=== PATIENT | male | born 1940 | race Caucasian/White ===

== ENCOUNTER 2017-11-10 07:10 | Emergency (ER) | payer MEDICARE, BC ==
--- NOTE | 2017-11-10 07:17 | EDM.PDOC ---
ED HPI GENERAL MEDICAL PROBLEM - General Stated Complaint: CHEST PAIN Time Seen by Provider: 11/10/17 07:10 Source of Information: Reports: Patient, EMS, Family History Limitations: Reports: No Limitations - History of Present Illness INITIAL COMMENTS - FREE TEXT/NARRATIVE: 77.y.o.w.m with H/O CAD, MM, S/P CABG and stentplacements in the past, came to the ed by EMS due to acute R and L lower abd. pain, cramping this am. As per , pt was pale and diaphoretic. As the patient arrived here in the ED, he was in his usual state af helth. Pain has subsided. BP 127/75 pulse 80, temp 98 , O2 sat 95% on RA Onset Date: 11/10/17 Onset Time: 05:00 Duration: Resolved Prior to Arrival (lasting seconds only) Location: Reports: Abdomen Quality: Reports: Dull, Throbbing Severity: Severe Improves with: Reports: Other (spontaneously) Worsens with: Reports: None Context: Reports: Other (H/O CAD, MM) Associated Symptoms: Reports: No Other Symptoms - Related Data Allergies Allergy/AdvReac Type Severity Reaction Status Date / Time furosemide [From Lasix] Allergy Other Verified 11/10/17 07:52 naproxen sodium [From Aleve] Allergy Hallucinati Verified 11/10/17 07:52 ons Home Meds: Home Meds Acetaminophen 500 mg PO Q4HR PRN 09/23/15 [History] Allopurinol [Allopurinol] 200 mg PO DAILY 09/23/15 [History] Carvedilol [Coreg] 6.25 mg PO MOWEFR@09/23/15 [History] Cholecalciferol (Vitamin D3) [Vitamin D3] 2,000 unit PO DAILY 09/23/15 [History] Cyanocobalamin (Vitamin B-12) [Cyanocobalamin Injection] 1,000 mcg IM Q30D 09/23 [History] Sennosides/Docusate Sodium [Senna-Docusate Sodium] 1 tab PO BID 09/23/15 [ History] Torsemide [Demadex] 10 mg PO MOWEFR@09/23/15 [History] Aspirin [Aspirin] 81 mg PO DAILY 11/10/17 [History] Clopidogrel Bisulfate [Clopidogrel] 75 mg PO DAILY 11/10/17 [History] Dexamethasone 12 mg PO ASDIRECTED 11/10/17 [History] Ixazomib Citrate [Ninlaro] 3 mg PO ASDIRECTED 11/10/17 [History] Rosuvastatin [Crestor] 10 mg PO DAILY 11/10/17 [History] Past Medical History - Past Health History Medical/Surgical History: Denies Medical/Surgical History Cardiovascular History: Reports: Bypass, CAD Other Oncologic History: renal cancer with mets Social & Family History - Family History GI: Reports: None - Tobacco Use Smoking Status *Q: Never Smoker Second Hand Smoke Exposure: No - Recreational Drug Use Recreational Drug Use: No ED ROS GENERAL - Review of Systems Review Of Systems: See Below Constitutional: Reports: No Symptoms HEENT: Reports: No Symptoms Respiratory: Reports: No Symptoms Cardiovascular: Reports: No Symptoms Endocrine: Reports: No Symptoms GI/Abdominal: Reports: No Symptoms : Reports: No Symptoms Musculoskeletal: Reports: No Symptoms Skin: Reports: Other (rash ant C/W chronic) Neurological: Reports: No Symptoms Psychiatric: Reports: No Symptoms Hematologic/Lymphatic: Reports: No Symptoms Immunologic: Reports: No Symptoms ED EXAM, GENERAL - Physical Exam Exam: See Below Exam Limited By: No Limitations General Appearance: Alert, WD/WN, No Apparent Distress Eye Exam: Bilateral Eye: Normal Inspection Ears: Normal External Exam, Normal Canal Ear Exam: Bilateral Ear: Auricle Normal Nose: Normal Inspection, Normal Mucosa, No Blood Throat/Mouth: Normal Inspection, Normal Lips Head: Atraumatic, Normocephalic Neck: Normal Inspection, Supple, Non-Tender, Full Range of Motion Respiratory/Chest: No Respiratory Distress, Lungs Clear, Normal Breath Sounds Cardiovascular: Normal Peripheral Pulses, Regular Rate, Rhythm, No Edema, No Gallop, No Murmur, No Rub Peripheral Pulses: 1+: Radial (R) GI/Abdominal: Normal Bowel Sounds, Soft, Non-Tender, No Organomegaly, No Distention, No Abnormal Bruit, No Mass, Pelvis Stable (Male) Exam: No Hernia, Normal Inspection Rectal (Males) Exam: Deferred Back Exam: Normal Inspection, Full Range of Motion Extremities: Normal Inspection, Normal Range of Motion, Non-Tender, No Pedal Edema, Normal Capillary Refill Neurological: Alert, Oriented, CN II-XII Intact, Normal Cognition, No Motor/ Sensory Deficits Psychiatric: Normal Affect, Normal Mood Skin Exam: Rash (ant c/w) Lymphatic: No Adenopathy EKG INTERPRETATION EKG Date: 11/10/17 Time: 07:15 Rhythm: NSR Rate (Beats/Min): 82 [place]: Normal P-Wave: Present QRS: Normal ST-T: Normal QT: Normal Comparison: NA - No Prior EKG Course - Vital Signs Text/Narrative:: 77.y.o.w.m with H/O CAD, MM, S/P CABG and stentplacements in the past, came to the ed by EMS due to acute R and L lower abd. pain, cramping this am. As per , pt was pale and diaphoretic. As the patient arrived here in the ED, he was in his usual state af helth. Pain has subsided. BP 127/75 pulse 80, temp 98 , O2 sat 95% on RA Pt is on Plavix. did not mio his med this am PE: WNWD WM in NAD Imaging: Not indicated Labs: WBC 6.3 HGB 14.3 HKT 40.3 Na 137 K. 3.8 GFR 23 Cr. 2.2 BUN 37 Glc 120 Troponin was 0.195 Impression: H/O CAD, Renal insufficiency (GFR 23) Elevated troponin, H/O MM Tx: ASA Reexam: Pt is pain free since [employer], in his usual state of health 7.58 am Consultation: Dr Lucas Rf Engineer, [place]: admit to the hospitalistzane stress test 7.59 am Cansultation: Dr. Hsu, Hospitalist, [place]: Accepted the pt for admission Plan: Transfer to [place], pt agreed with plan Last Recorded V/S: Last Vital Signs Temp 36.7 C 11/10/17 12:15 Pulse 79 11/10/17 12:15 Resp 18 11/10/17 12:15 BP 112/78 11/10/17 12:15 Pulse Ox 93 L 11/10/17 12:15 - Orders/Labs/Meds Labs: Laboratory Tests 11/10/17 11/10/17 11/10/17 Range/Units 07:25 07:25 07:25 WBC 6.2 (4.5-12.0) X10-3/uL RBC 4.12 L (4.30-5.75) x10(6)uL Hgb 14.3 D (11.5-15.5) g/dL Hct 42.6 (30.0-51.3) % MCV 103.4 H (80-96) fL MCH 34.6 H (27.7-33.6) pg MCHC 33.5 (32.2-35.4) g/dL RDW 14.9 (11.5-15.5) % Plt Count 107 L (125-369) X10(3)uL MPV 10.9 H (7.4-10.4) fL Neut % (Auto) 71.7 (46-82) % Lymph % (Auto) 13.6 (13-37) % [place] % (Auto) 11.0 (4-12) % Eos % (Auto) 3 (1.0-5.0) % Baso % (Auto) 1 (0-2) % Neut # (Auto) 4.4 (1.6-8.3) # Lymph # (Auto) 0.8 (0.6-5.0) # Rincon # (Auto) 0.7 (0.0-1.3) # Eos # (Auto) 0.2 (0.0-0.8) # Baso # (Auto) 0.1 (0.0-0.2) # PT 11.1 (8.7-11.1) INR 1.10 (0.89-1.13) Sodium 142 (135-145) mmol/L Potassium 3.7 (3.5-5.3) mmol/L Chloride 107 (100-110) mmol/L Carbon Dioxide 27 (21-32) mmol/L BUN 37 H (7-18) mg/dL Creatinine 2.2 H* (0.70-1.30) mg/dL Est Cr Clr Drug Dosing 30.89 mL/min Estimated GFR (MDRD) 29 L (>60) BUN/Creatinine Ratio 16.8 (9-20) Glucose 120 H (80-116) mg/dL Calcium 8.6 (8.6-10.2) mg/dL Total Bilirubin 0.8 (0.1-1.3) mg/dL Direct Bilirubin 0.18 (0.10-0.20) mg/dL AST 23 (5-25) IU/L ALT 25 (12-36) U/L Alkaline Phosphatase 103 (56-112) IU/L Troponin I (<0.017-0.056) ng/mL Total Protein 6.1 (6.0-8.0) g/dL Albumin 3.3 (3.2-4.6) g/dL Amylase 119 H (25-115) U/L Urine Color (YELLOW) Urine Appearance (CLEAR) Urine pH (5.0-6.5) Ur Specific Colony (1.010-1.025) Urine Protein (NEGATIVE) mg/dL Urine Glucose (UA) (NEGATIVE) mg/dL Urine Ketones (NEGATIVE) mg/dL Urine Occult Blood (NEGATIVE) Urine Nitrite (NEGATIVE) Urine Bilirubin (NEGATIVE) Urine Urobilinogen (NEGATIVE) mg/dL Ur Leukocyte Esterase (NEGATIVE) Urine WBC (0) Ur Squamous Epith Cells (NS,R,O) Urine Bacteria (NS) 11/10/17 11/10/17 Range/Units 07:25 11:25 WBC (4.5-12.0) X10-3/uL RBC (4.30-5.75) x10(6)uL Hgb (11.5-15.5) g/dL Hct (30.0-51.3) % MCV (80-96) fL MCH (27.7-33.6) pg MCHC (32.2-35.4) g/dL RDW (11.5-15.5) % Plt Count (125-369) X10(3)uL MPV (7.4-10.4) fL Neut % (Auto) (46-82) % Lymph % (Auto) (13-37) % [place] % (Auto) (4-12) % Eos % (Auto) (1.0-5.0) % Baso % (Auto) (0-2) % Neut # (Auto) (1.6-8.3) # Lymph # (Auto) (0.6-5.0) # Rincon # (Auto) (0.0-1.3) # Eos # (Auto) (0.0-0.8) # Baso # (Auto) (0.0-0.2) # PT (8.7-11.1) INR (0.89-1.13) Sodium (135-145) mmol/L Potassium (3.5-5.3) mmol/L Chloride (100-110) mmol/L Carbon Dioxide (21-32) mmol/L BUN (7-18) mg/dL Creatinine (0.70-1.30) mg/dL Est Cr Clr Drug Dosing mL/min Estimated GFR (MDRD) (>60) BUN/Creatinine Ratio (9-20) Glucose (80-116) mg/dL Calcium (8.6-10.2) mg/dL Total Bilirubin (0.1-1.3) mg/dL Direct Bilirubin (0.10-0.20) mg/dL AST (5-25) IU/L ALT (12-36) U/L Alkaline Phosphatase (56-112) IU/L Troponin I 0.195 H* (<0.017-0.056) ng/mL Total Protein (6.0-8.0) g/dL Albumin (3.2-4.6) g/dL Amylase (25-115) U/L Urine Color Yellow (YELLOW) Urine Appearance Slightly cloudy (CLEAR) Urine pH 5.0 (5.0-6.5) Ur Specific Colony 1.015 (1.010-1.025) Urine Protein Negative (NEGATIVE) mg/dL Urine Glucose (UA) Normal (NEGATIVE) mg/dL Urine Ketones Negative (NEGATIVE) mg/dL Urine Occult Blood Negative (NEGATIVE) Urine Nitrite Negative (NEGATIVE) Urine Bilirubin Negative (NEGATIVE) Urine Urobilinogen Normal (NEGATIVE) mg/dL Ur Leukocyte Esterase Negative (NEGATIVE) Urine WBC 0-5 (0) Ur Squamous Epith Cells Few H (NS,R,O) Urine Bacteria Few H (NS) Meds: Medications Discontinued Medications Generic Name Dose Route Start Last Admin Trade Name Freq PRN Reason Stop Dose Admin Al Hydroxide/Mg Hydroxide 30 ml 11/10/17 09:39 11/10/17 09:55 Mag-Al Susp PO 11/10/17 09:40 30 ml ONETIME STA Administration Aspirin 324 mg 11/10/17 07:55 11/10/17 08:00 Aspirin PO 11/10/17 07:56 324 mg ONETIME ONE Administration Ondansetron HCl 8 mg 11/10/17 09:39 11/10/17 09:54 Zofran IVPUSH 11/10/17 09:40 8 mg ONETIME ONE Administration Sodium Chloride 10 ml 11/10/17 09:04 11/10/17 10:01 Saline Flush FLUSH 10 ml ASDIRECTED PRN Administration Keep Vein Open Departure - Departure Time of Disposition: 18:00 Disposition: DC/Tfer to Acute Hospital 02 Reason for Transfer *Q: Other (no technical support 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
[2017-11-10] MEDS: Aspirin 81 MG Tab.Chew PO ONE (08:00)
[2017-11-10] MEDS: Ondansetron 4 MG/2 ML SDV IVPUSH ONE (09:54)
[2017-11-10] MEDS: Aluminum Hydroxide/Magnesium Hydroxide Susp 30 ML Cup PO STA (09:55)
[2017-11-10] MEDS: Sodium Chloride 0.9% 10 ML Syringe FLUSH PRN (10:01)
[2017-11-10 16:42] VITALS: BP 112/78
== END 2017-11-10 12:45 ==
LOC: FB.ED 07:10
DX: I25.10 Atherosclerotic heart disease of native coronary artery without angina pectoris (principal); N28.9 Disorder of kidney and ureter, unspecified; R79.89 Other specified abnormal findings of blood chemistry; Z95.1 Presence of aortocoronary bypass graft; Z79.82 Long term (current) use of aspirin; Z79.899 Other long term (current) drug therapy; Z88.8 Allergy status to other drugs, medicaments and biological substances
CPT/HCPCS: 36415; 80048; 80076; 81001; 82150; 84484; 85025; 85610; 93005; 96374; 99285; A9270; J2405; J7050; 93010

== ENCOUNTER 2019-03-09 11:15 | Emergency (ER) | payer MEDICARE, BC ==
--- NOTE | 2019-03-09 11:51 | EDM.PDOC ---
ED HPI GENERAL MEDICAL PROBLEM - General Stated Complaint: WEAKNESS Time Seen by Provider: 03/09/19 11:15 Source of Information: Reports: Patient, EMS, Family History Limitations: Reports: Physical Impairment - History of Present Illness INITIAL COMMENTS - FREE TEXT/NARRATIVE: 78 y.o.w.m with a H/O metastatic prostate CA, MM, Bladder CA CAD S/P CABG, came by EMS after he fell in the bathroom because of generalized weakness. Pt denies any pain. His last radiation Thx was given yesterday. No chills. No SOB, No CP no N/V/D. Pt is a poor historian, HPI was given by his who arrived later. Pt is Ox3, No focal weakness, no head trauma. Pt had 2 weeks a go a facial droop which was checked in [place], no CVA/TIA was Dx'd. Pt noticed a minor bruise at his left knee and right ankle. BP 110/57 Pulse 95 Pulse ox 95% on RA RR 25 Temp 39.2, no chills. 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) - Related Data Allergies Allergy/AdvReac Type Severity Reaction Status Date / Time furosemide [From Lasix] Allergy Other Verified 03/09/19 11:34 naproxen sodium [From Aleve] Allergy Hallucinati Verified 03/09/19 11:34 ons ticagrelor [From Brilinta] Allergy Shortness Verified 03/09/19 11:34 of Breath Home Meds: Home Meds Allopurinol 200 mg PO DAILY 09/23/15 [History] Carvedilol [Coreg] 12.5 mg PO BID 09/23/15 [History] Sennosides/Docusate Sodium [Senna-Docusate Sodium] 1 tab PO BID 09/23/15 [ History] Aspirin 81 mg PO DAILY 11/10/17 [History] Ixazomib Citrate [Ninlaro] 3 mg PO ASDIRECTED 11/10/17 [History] Rosuvastatin [Crestor] 20 mg PO DAILY 11/10/17 [History] Tamsulosin HCl [Flomax] 0.8 mg PO DAILY 07/29/18 [History] Acetaminophen 650 mg PO Q6H PRN 03/09/19 [History] Albuterol/Ipratropium [DuoNeb 3.0-0.5 MG/3 ML] 3 ml .XX TID 03/09/19 [History] Bicalutamide [Casodex] 50 mg PO DAILY 03/09/19 [History] Calcium Carbonate [Calcium] 500 mg PO TID 03/09/19 [History] Cholecalciferol (Vitamin D3) [Vitamin D3] 2,000 unit PO DAILY 03/09/19 [History] Eltrombopag Olamine [Promacta] 75 mg PO DAILY 03/09/19 [History] Iron Polysaccharides Complex [Ferrex 150] 150 mg PO ASDIRECTED 03/09/19 [History ] Isosorbide Mononitrate [Imdur] 90 mg PO DAILY 03/09/19 [History] LORazepam [Ativan] 0.5 mg PO ASDIRECTED 03/09/19 [History] Lactobacillus Acidophilus [Acidophilus] 1 each PO ASDIRECTED 03/09/19 [History] Nitroglycerin 0.4 mg SL ASDIRECTED 03/09/19 [History] Ondansetron [Zofran] 8 mg PO ASDIRECTED 03/09/19 [History] Pantoprazole [ProTONIX] 40 mg PO DAILY 03/09/19 [History] Potassium Chloride [Klor-Con] 20 meq PO DAILY 03/09/19 [History] Psyllium with Sucrose [Metamucil] 1 each PO BID 03/09/19 [History] Sodium Bicarbonate 650 mg PO TID 03/09/19 [History] Torsemide 10 mg PO ASDIRECTED 03/09/19 [History] guaiFENesin/Codeine Phosphate [Codeine-Guaifen 10-100 mg/5 ml] 10 ml PO Q4H PRN 03/09/19 [History] predniSONE [Prednisone] 40 mg PO DAILY 03/09/19 [History] traMADol [Ultram] 50 mg PO Q4H PRN 03/09/19 [History] Past Medical History - Past Health History Medical/Surgical History: Denies Medical/Surgical History HEENT History: Reports: Cataract Cardiovascular History: Reports: Bypass, CAD Other Cardiovascular History: defibulator Respiratory History: Reports: Sleep Apnea Genitourinary History: Reports: Other (See Below) Other Genitourinary History: Stage 4 renal disease Endocrine/Metabolic History: Reports: Obesity/BMI 30+ Hematologic History: Reports: B12 Deficiency, Other (See Below) Other Hematologic History: monthly shot Oncologic (Cancer) History: Reports: Other (See Below) Other Oncologic History: renal cancer with mets Dermatologic History: Reports: Other (See Below) Other Dermatologic History: erruptions due to chemo - Past Surgical History HEENT Surgical History: Reports: Cataract Surgery Cardiovascular Surgical History: Reports: Coronary Artery Bypass, Coronary Artery Stent GI Surgical History: Reports: Appendectomy, Cholecystectomy Musculoskeletal Surgical History: Reports: Other (See Below) Other Musculoskeletal Surgeries/Procedures:: Back surgery Social & Family History - Family History Family Medical History: Noncontributory GI: Reports: None - Caffeine Use Caffeine Use: Reports: None ED ROS GENERAL - Review of Systems Review Of Systems: See Below Constitutional: Reports: Weakness HEENT: Reports: No Symptoms Respiratory: Reports: No Symptoms Cardiovascular: Reports: No Symptoms Endocrine: Reports: No Symptoms GI/Abdominal: Reports: No Symptoms : Reports: No Symptoms Musculoskeletal: Reports: No Symptoms Skin: Reports: Pallor Neurological: Reports: No Symptoms Psychiatric: Reports: No Symptoms Hematologic/Lymphatic: Reports: Anemia Immunologic: Reports: No Symptoms ED EXAM, GENERAL - Physical Exam Exam: See Below Exam Limited By: Physical Impairment General Appearance: Alert, Mild Distress, Obese Eye Exam: Bilateral Eye: Normal Inspection Ears: Normal External Exam Ear Exam: Bilateral Ear: Auricle Normal Nose: Normal Inspection, Normal Mucosa, No Blood Throat/Mouth: Normal Lips, Normal Voice, No Airway Compromise, Other (poor dentition) Head: Atraumatic, Normocephalic Neck: Normal Inspection, Supple, Non-Tender, Full Range of Motion Respiratory/Chest: No Respiratory Distress, Lungs Clear, Normal Breath Sounds, No Accessory Muscle Use, Chest Non-Tender Cardiovascular: Normal Peripheral Pulses, Regular Rate, Rhythm, No Gallop, Systolic Murmur (2/5, not new), Other (chronic pitting edema lower extremities) Peripheral Pulses: 1+: Radial (L) GI/Abdominal: Normal Bowel Sounds (Male) Exam: No Hernia Rectal (Males) Exam: Normal Exam Back Exam: Normal Inspection Extremities: Normal Range of Motion, Pedal Edema Neurological: Alert, Oriented, CN II-XII Intact, Normal Cognition, Abnormal Gait (too weak to ambulate.) Psychiatric: Normal Affect, Normal Mood Skin Exam: Warm, Dry, Ecchymosis (upper ) Lymphatic: Adenopathy EKG INTERPRETATION EKG Date: 03/09/19 Time: 11:35 Rhythm: NSR Rate (Beats/Min): 93 [place]: LAD-Left [place] Deviation P-Wave: Present QRS: Normal ST-T: Normal QT: Normal Comparison: No Change (from 07/29/2018) Course - Vital Signs Text/Narrative:: 78 y.o.w.m with a H/O metastatic prostate CA, MM, Bladder CA CAD S/P CABG, came by EMS after he fell in the bathroom because of generalized weakness. Pt denies any pain. His last radiation Thx was given yesterday. No chills. No SOB, No CP no N/V/D. Pt is a poor historian, HPI was given by his who arrived later. Pt is Ox3, No focal weakness, no head trauma. Pt had 2 weeks a go a facial droop which was checked in [place], no CVA/TIA was Dx'd. Pt noticed a minor bruise at his left knee and right ankle. BP 110/57 Pulse 95 Pulse ox 95% on RA RR 25 Temp 39.2, no chills. PE: Pale, gen weak appearing 78 y.o.w.m with multiple medical issues. Imaging: CXR: possible atelectasis right lung, official report is pending. CT Head: NAD Labs: WBC 4.1 HGB 10.4 Plts 9K MCV 103.1 INR 1.3 Na 140 K 5.0 Bun 29 CR 2.1 GFR 31 Lactic acid 1.8 Ca 7.7 Elevated liver enzymes, Troponin 0.137 CK 456 Alb 2.4 BCx results are pending ECG: NSR no change from 07/29/2018 Impression: MM, Prostate and bladder CA. Thrombocytopenia. Anemia, CAD H/O CABG. elevated Troponin, elevated liver enzymes, Hypocalcemia, Atelectasis right lower lung. Sepsis risk. Thx: NS bolus 500 cc, then 125, Motrin for Temp (had Motrin in the past), Zosyn. O2 by [place] 12.30 pm: Consultation: Dr. Zuleta, Hospitalist: Transfer to [facility] 12.36 pm Consultation: , Oncologist,[facility]: Call Hospitalist 1.29pm: Dr. Mcmillan, Hospitalist at [facility] called back: Accepted the patient for transfer and further care, recommended a CT head before Transfer. Re exam: Pt was doing fine in the ED. After pt fell asleep, his BP dropped to 89 /47. it came up to 92/50 after pt woke up. NS and Abx were started pt's vitals improved further. Plan: Transfer by EMS to [place]. Please check the nursing for vitals on transfer. Last Recorded V/S: Last Vital Signs Temp 36.8 C 03/09/19 15:00 Pulse 83 03/09/19 15:00 Resp 24 H 03/09/19 15:00 BP 103/58 L 03/09/19 15:00 Pulse Ox 100 03/09/19 15:00 - Orders/Labs/Meds Labs: Laboratory Tests 03/09/19 03/09/19 03/09/19 Range/Units 11:45 11:45 11:45 WBC 4.2 L (4.5-12.0) X10-3/uL RBC 3.14 L (4.30-5.75) x10(6)uL Hgb 10.9 L (13.5-17.8) g/dL Hct 32.4 (30.0-51.3) % MCV 103.1 H (80-96) fL MCH 34.7 H (27.7-33.6) pg MCHC 33.6 (32.2-35.4) g/dL RDW 22.6 H (11.5-15.5) % Plt Count 9 L* (125-369) X10(3)uL MPV 7.9 (7.4-10.4) fL Neut % (Auto) 78.0 (46-82) % Lymph % (Auto) 13.6 (13-37) % [place] % (Auto) 7.4 (4-12) % Eos % (Auto) 0 L (1.0-5.0) % Baso % (Auto) 1 (0-2) % Neut # (Auto) 3.3 (1.6-8.3) # Lymph # (Auto) 0.6 (0.6-5.0) # [place] # (Auto) 0.3 (0.0-1.3) # Eos # (Auto) 0.0 (0.0-0.8) # Baso # (Auto) 0.0 (0.0-0.2) # PT 12.6 H (8.7-11.1) INR 1.30 H (0.89-1.13) Sodium 140 (135-145) mmol/L Potassium 5.0 D (3.5-5.3) mmol/L Chloride 105 (100-110) mmol/L Carbon Dioxide 25 (21-32) mmol/L BUN 29 H D (7-18) mg/dL Creatinine 2.1 H* (0.70-1.30) mg/dL Est Cr Clr Drug Dosing 31.38 mL/min Estimated GFR (MDRD) 31 L (>60) BUN/Creatinine Ratio 13.8 (9-20) Glucose 115 (80-116) mg/dL Lactic Acid (0.4-2.2) mmol/L Calcium 7.7 L (8.6-10.2) mg/dL Magnesium (1.8-2.5) mg/dL Total Bilirubin 1.8 H (0.1-1.3) mg/dL Direct Bilirubin 0.90 H (0.10-0.20) mg/dL AST 51 H D (5-25) IU/L ALT 68 H D (12-36) U/L Alkaline Phosphatase 482 H (56-112) IU/L Creatine Kinase (60-160) IU/L Troponin I (<0.017-0.056) ng/mL NT-Pro-B Natriuret Pep (<=450) pg/mL Total Protein 6.1 (6.0-8.0) g/dL Albumin 2.4 L (3.2-4.6) g/dL Amylase 35 (25-115) U/L Vitamin B12 (193-986) pg/mL Urine Color (YELLOW) Urine Appearance (CLEAR) Urine pH (5.0-6.5) Ur Specific [place] (1.010-1.025) Urine Protein (NEGATIVE) mg/dL Urine Glucose (UA) (NORMAL) mg/dL Urine Ketones (NEGATIVE) mg/dL Urine Occult Blood (NEGATIVE) Urine Nitrite (NEGATIVE) Urine Bilirubin (NEGATIVE) Urine Urobilinogen (NEGATIVE) mg/dL Ur Leukocyte Esterase (NEGATIVE) Urine RBC (0-5) Urine WBC (0-5) Ur Squamous Epith Cells (NS,R,O) Urine Bacteria (NS) 03/09/19 03/09/19 03/09/19 Range/Units 11:45 11:45 11:45 WBC (4.5-12.0) X10-3/uL RBC (4.30-5.75) x10(6)uL Hgb (13.5-17.8) g/dL Hct (30.0-51.3) % MCV (80-96) fL MCH (27.7-33.6) pg MCHC (32.2-35.4) g/dL RDW (11.5-15.5) % Plt Count (125-369) X10(3)uL MPV (7.4-10.4) fL Neut % (Auto) (46-82) % Lymph % (Auto) (13-37) % [place] % (Auto) (4-12) % Eos % (Auto) (1.0-5.0) % Baso % (Auto) (0-2) % Neut # (Auto) (1.6-8.3) # Lymph # (Auto) (0.6-5.0) # [place] # (Auto) (0.0-1.3) # Eos # (Auto) (0.0-0.8) # Baso # (Auto) (0.0-0.2) # PT (8.7-11.1) INR (0.89-1.13) Sodium (135-145) mmol/L Potassium (3.5-5.3) mmol/L Chloride (100-110) mmol/L Carbon Dioxide (21-32) mmol/L BUN (7-18) mg/dL Creatinine (0.70-1.30) mg/dL Est Cr Clr Drug Dosing mL/min Estimated GFR (MDRD) (>60) BUN/Creatinine Ratio (9-20) Glucose (80-116) mg/dL Lactic Acid 1.8 (0.4-2.2) mmol/L Calcium (8.6-10.2) mg/dL Magnesium (1.8-2.5) mg/dL Total Bilirubin (0.1-1.3) mg/dL Direct Bilirubin (0.10-0.20) mg/dL AST (5-25) IU/L ALT (12-36) U/L Alkaline Phosphatase (56-112) IU/L Creatine Kinase 452 H* (60-160) IU/L Troponin I 0.137 H* (<0.017-0.056) ng/mL NT-Pro-B Natriuret Pep > 99803 H* (<=450) pg/mL Total Protein (6.0-8.0) g/dL Albumin (3.2-4.6) g/dL Amylase (25-115) U/L Vitamin B12 (193-986) pg/mL Urine Color (YELLOW) Urine Appearance (CLEAR) Urine pH (5.0-6.5) Ur Specific [place] (1.010-1.025) Urine Protein (NEGATIVE) mg/dL Urine Glucose (UA) (NORMAL) mg/dL Urine Ketones (NEGATIVE) mg/dL Urine Occult Blood (NEGATIVE) Urine Nitrite (NEGATIVE) Urine Bilirubin (NEGATIVE) Urine Urobilinogen (NEGATIVE) mg/dL Ur Leukocyte Esterase (NEGATIVE) Urine RBC (0-5) Urine WBC (0-5) Ur Squamous Epith Cells (NS,R,O) Urine Bacteria (NS) 03/09/19 03/09/19 03/09/19 Range/Units 11:45 11:45 12:10 WBC (4.5-12.0) X10-3/uL RBC (4.30-5.75) x10(6)uL Hgb (13.5-17.8) g/dL Hct (30.0-51.3) % MCV (80-96) fL MCH (27.7-33.6) pg MCHC (32.2-35.4) g/dL RDW (11.5-15.5) % Plt Count (125-369) X10(3)uL MPV (7.4-10.4) fL Neut % (Auto) (46-82) % Lymph % (Auto) (13-37) % [place] % (Auto) (4-12) % Eos % (Auto) (1.0-5.0) % Baso % (Auto) (0-2) % Neut # (Auto) (1.6-8.3) # Lymph # (Auto) (0.6-5.0) # [place] # (Auto) (0.0-1.3) # Eos # (Auto) (0.0-0.8) # Baso # (Auto) (0.0-0.2) # PT (8.7-11.1) INR (0.89-1.13) Sodium (135-145) mmol/L Potassium (3.5-5.3) mmol/L Chloride (100-110) mmol/L Carbon Dioxide (21-32) mmol/L BUN (7-18) mg/dL Creatinine (0.70-1.30) mg/dL Est Cr Clr Drug Dosing mL/min Estimated GFR (MDRD) (>60) BUN/Creatinine Ratio (9-20) Glucose (80-116) mg/dL Lactic Acid (0.4-2.2) mmol/L Calcium (8.6-10.2) mg/dL Magnesium 1.4 L (1.8-2.5) mg/dL Total Bilirubin (0.1-1.3) mg/dL Direct Bilirubin (0.10-0.20) mg/dL AST (5-25) IU/L ALT (12-36) U/L Alkaline Phosphatase (56-112) IU/L Creatine Kinase (60-160) IU/L Troponin I (<0.017-0.056) ng/mL NT-Pro-B Natriuret Pep (<=450) pg/mL Total Protein (6.0-8.0) g/dL Albumin (3.2-4.6) g/dL Amylase (25-115) U/L Vitamin B12 1461 H (193-986) pg/mL Urine Color Yellow (YELLOW) Urine Appearance Clear (CLEAR) Urine pH 8.0 H (5.0-6.5) Ur Specific [place] 1.015 (1.010-1.025) Urine Protein 100 H (NEGATIVE) mg/dL Urine Glucose (UA) 100 H (NORMAL) mg/dL Urine Ketones Negative (NEGATIVE) mg/dL Urine Occult Blood Large H (NEGATIVE) Urine Nitrite Negative (NEGATIVE) Urine Bilirubin Negative (NEGATIVE) Urine Urobilinogen Normal (NEGATIVE) mg/dL Ur Leukocyte Esterase Negative (NEGATIVE) Urine RBC 0-5 (0-5) Urine WBC 0-5 (0-5) Ur Squamous Epith Cells Occasional (NS,R,O) Urine Bacteria Few H (NS) Meds: Medications Discontinued Medications Generic Name Dose Route Start Last Admin Trade Name Freq PRN Reason Stop Dose Admin Sodium Chloride 1,000 mls @ 125 mls/hr 03/09/19 14:45 03/09/19 14:35 Normal Saline IV 999 mls/hr ASDIRECTED AUGUSTUS Administration Piperacillin Sod/Tazobactam 50 mls @ 100 mls/hr 03/09/19 14:35 03/09/19 14:49 Sod 3.375 gm/ Sodium Chloride IV 03/09/19 15:04 100 mls/hr ONETIME STA Administration Ibuprofen 600 mg 03/09/19 12:25 03/09/19 12:39 Motrin PO 03/09/19 12:26 600 mg ONETIME ONE Administration Pantoprazole Sodium 40 mg 03/09/19 12:25 03/09/19 12:41 Protonix Iv IVPUSH 03/09/19 12:26 40 mg ONETIME ONE Administration Sodium Chloride 10 ml 03/09/19 12:58 Normal Saline FLUSH UPON PRN MED FLUSH Sodium Chloride 10 ml 03/09/19 13:00 03/09/19 14:30 Saline Flush FLUSH 10 ml ASDIRECTED PRN Administration MED FLUSH Departure - Departure Time of Disposition: 18:00 Disposition: DC/Tfer to Acute Hospital 02 Condition: Fair Clinical Impression: Bladder cancer - Discharge Information Referrals: Neil Henderson MD [Primary Care Provider] - Forms: ED Department Discharge
[2019-03-09] MEDS ORDERED: Pantoprazole 40 MG Vial IVPUSH ONE (12:25)
[2019-03-09] MEDS ORDERED: Ibuprofen 600 MG Tab PO ONE (12:25)
[2019-03-09] MEDS: Sodium Chloride 0.9% 10 ML Syringe FLUSH PRN ×3 (12:39→14:30)
[2019-03-09] MEDS ORDERED: Sodium Chloride 0.9% 20 ML SDV FLUSH PRN (12:58)
[2019-03-09] MEDS ORDERED: Piperacillin/Tazobactam 3.375 GM in Sodium Chloride 0.9% 50 ML IV STA (14:35)
[2019-03-09] MEDS ORDERED: Sodium Chloride 0.9% 1,000 ML IV SCH (14:45)
[2019-03-09 15:53] VITALS: BP 103/58
== END 2019-03-09 15:20 ==
LOC: FB.ED 11:15
DX: C67.9 Malignant neoplasm of bladder, unspecified (principal); C61 Malignant neoplasm of prostate; D69.6 Thrombocytopenia, unspecified; D63.0 Anemia in neoplastic disease; I25.10 Atherosclerotic heart disease of native coronary artery without angina pectoris; R79.89 Other specified abnormal findings of blood chemistry; R74.8 Abnormal levels of other serum enzymes; E83.51 Hypocalcemia; J98.11 Atelectasis; Z95.1 Presence of aortocoronary bypass graft; Z88.8 Allergy status to other drugs, medicaments and biological substances; Z88.5 Allergy status to narcotic agent; Z79.899 Other long term (current) drug therapy; Z79.82 Long term (current) use of aspirin; N18.4 Chronic kidney disease, stage 4 (severe); E66.9 Obesity, unspecified; Z68.29 Body mass index [BMI] 29.0-29.9, adult
CPT/HCPCS: 36415; 51702; 70450; 71045; 80048; 80076; 81001; 82150; 82550; 82607; 83605; 83735; 83880; 84484; 85025; 85610; 87040; 93005; 96365; 96375; 99285; A9270; C9113; J2543; J7030; J7050

== ENCOUNTER 2019-03-20 10:48 | Inpatient (IN) | payer MEDICARE, BC ==
[2019-03-20] MEDS ORDERED: traMADol 50 MG Tab PO PRN (18:05)
[2019-03-20] MEDS ORDERED: LORazepam 0.5 MG Tab PO PRN (18:05)
[2019-03-20] MEDS ORDERED: DEXTRAN OP PRN (18:05)
[2019-03-20] MEDS ORDERED: Albuterol/Ipratropium 3.0-0.5 MG/3 ML Neb Soln INH PRN (18:05)
[2019-03-20] MEDS ORDERED: [UNRECOGNIZED DRUG - OTHER] OP PRN (18:05)
[2019-03-20] MEDS ORDERED: Morphine Oral Concentrate 20 MG/ML 30 ML Bottle PO PRN (18:05)
[2019-03-20] MEDS ORDERED: GLYCERIN OP PRN (18:05)
[2019-03-20] MEDS ORDERED: HYPROMELLOSE OP PRN (18:05)
[2019-03-20] MEDS ORDERED: Codeine/guaiFENesin 100-10 MG/5 ML Syrup 5 ML Cup PO PRN (18:23)
[2019-03-20] MEDS ORDERED: LORazepam 2 MG/ML SDV IVPUSH PRN (18:58)
[2019-03-20] MEDS ORDERED: Sodium Chloride 0.9% 10 ML Syringe FLUSH PRN (18:59)
[2019-03-20] MEDS ORDERED: Acetaminophen 650 MG Supp RECTAL PRN (22:08)
[2019-03-20] MEDS: Nystatin Susp 100,000 Unit/ML 60 ML Bottle PO SCH ×2 (22:36→22:48)
[2019-03-20] MEDS: Nystatin Susp 100,000 Unit/ML 5 ML UD Cup PO SCH (22:47)
[2019-03-21] MEDS ORDERED: Morphine 10 MG/0.5 ML Oral Syringe PO PRN ×2 (08:16→10:54)
[2019-03-21] MEDS: predniSONE 20 MG Tab PO SCH (10:12)
[2019-03-21] MEDS: Carboxymethylcellulose Sodium 0.5% Ophth Soln 15 ML Bottle EYEBOTH SCH ×4 (10:12→20:58)
[2019-03-21] MEDS: Nystatin Susp 100,000 Unit/ML 5 ML UD Cup PO SCH ×4 (10:12→20:50)
[2019-03-21] MEDS ORDERED: Haloperidol 0.5 MG Tab PO PRN (10:48)
[2019-03-21] MEDS ORDERED: Hyoscyamine 0.125 MG Tab.SL PO PRN (10:53)
--- NOTE | 2019-03-21 18:03 | HP ---
ADMISSION DATE: 03/20/2019 CHIEF COMPLAINT: Complicated declining health. HISTORY OF PRESENT ILLNESS: Chino Stone is a 78-year-old male; a resident of [place], [place] and [place], [place]. Has had a complicated health issue over the last several years' duration. 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 Presented to [facility] on 03/09/2019 with progressive falls; progressive weakness; increasing evidence of metastatic disease, hepatic in particular; worsening neurological symptoms with cachexia and weakness; reluctance to eat; and progressive decline. He was seen by specialty care, transferred to hospice intervention. Fevers prior to discharge, responded to Tylenol. MEDICATIONS: On board, please see med reconciliation list. ALLERGIES: Allergy to Atorvastatin. Intolerance: Aleve, unremarkable; Brilinta, shortness of breath; and furosemide. PAST MEDICAL HISTORY: Significant for the above described cancers including multiple myeloma, prostate cancer, squamous cell cancer of the bladder, and squamous cell cancer of the rectum with interval care. He has had prostate biopsies, lumbar thoracic spine fusion, bilateral cataract surgery, open cholecystectomy, coronary bypass surgery, kidney stone, and lithotripsy. SOCIAL HISTORY: Retired. 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 in good health. 1 adopted daughter, 2 grandchildren. Never smoked. Nil alcohol consumption or illicit drug use. FAMILY HISTORY: Unremarkable. REVIEW OF SYSTEMS: CONSTITUTIONAL: Weaker. EYES: Uncertain. EARS: Some difficulty hearing. OROPHARYNX: Speech has been more garbled and difficult. CHEST: Vague cough. CARDIOVASCULAR: No apparent chest pain. GASTROINTESTINAL: Stools have been reluctant, incontinent of stool and urine. SKIN: No open sores or lesions. ENDOCRINE: No excessive thirst or urination. ALLERGIC: No chronic cough. PSYCHIATRIC: Mood stable. PHYSICAL EXAMINATION: VITAL SIGNS: 36.3, 83, 114/71, 16, and 98%. GENERAL: Elderly gentleman, appears older than stated age. Conversation is limited. History mostly by . HEENT: Funduscopic benign. Bright TMs. Clear nasal discharge. Mouth and oropharynx reveal dry mucous membranes. There are no intraoral lesions. NECK: Benign. No adenopathy. CHEST: Clear in all lung alfaro. Decreased breath sounds throughout. Poor respiratory effort. HEART: Sounds are distant, occasional ectopy. ABDOMEN: Benign, distended, tympanitic. Liver edge appears to be enlarged. Surgical scar is well healed. GENITOURINARY: Unremarkable. RECTAL: Deferred. EXTREMITIES: Reveal moderate edema, decreased peripheral pulses. LABORATORY STUDIES: None indicated. ASSESSMENT: Complicated metastatic cancer. PLAN: Comfort measures, DNR, appropriate management and care, transition to hospice and/or other appropriate facilities, and pain control on board. /[id number] /EDWIN
--- NOTE | 2019-03-22 08:14 | PN ---
DATE SEEN: 03/21/2019 SUBJECTIVE: Chino Stone is a delightful 78-year-old gentleman admitted to [facility] for interval care. Metastatic cancer unresponsive to treatment, support measures in place. Had a pretty good night. 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 More alert today. Hospice will evaluate transition of care. PHYSICAL EXAMINATION: VITAL SIGNS: 37.5, 83, 95/62, 20, 95. GENERAL: A bit more bright. Speech was a little garbled, but receptible. NECK: Benign. CHEST: Clear. Distant lung sounds. HEART: Distant heart sounds. No ectopy. ABDOMEN: Distended. IMPRESSION: Metastatic disease. PLAN: Comfort measures, hospice to be involved, complementary care and well being. /[id number] NURA/EDWIN
[2019-03-22] MEDS: Nystatin Susp 100,000 Unit/ML 5 ML UD Cup PO SCH ×4 (08:51→20:59)
[2019-03-22] MEDS: predniSONE 20 MG Tab PO SCH (08:52)
[2019-03-22] MEDS: Carboxymethylcellulose Sodium 0.5% Ophth Soln 15 ML Bottle EYEBOTH SCH ×3 (09:00→20:58)
--- NOTE | 2019-03-22 13:59 | PN ---
DATE SEEN: 03/22/2019 SUBJECTIVE: Chino Stone is a 78-year-old male in Palliative Care. Had a pretty good night. Had an uncomfortable dream, but better this morning. More awake, more alert, more appropriate. Pain over his buttocks is the primary concern. Otherwise been doing well. Medications reviewed and appropriate. Hospice, home health consultation has been obtained. LABORATORY STUDIES: None indicated. OBJECTIVE: VITAL SIGNS: 35.9, 66, 122/82, 95, 18, 97. GENERAL: Bright, alert, awake. Speech was a bit garbled, but attentive. NECK: Benign. No JVD. CHEST: Clear in all lung alfaro. HEART: No ectopy or murmur. ABDOMEN: Benign. ASSESSMENT: Palliative care, progressive metastatic cancer. PLAN: Comfort measures in place, hospice on board, discharge plans pending clinical course. /[id number] NURA/EDWIN
[2019-03-23] MEDS: predniSONE 20 MG Tab PO SCH (09:28)
[2019-03-23] MEDS: Nystatin Susp 100,000 Unit/ML 5 ML UD Cup PO SCH ×4 (09:28→20:36)
[2019-03-23] MEDS: Carboxymethylcellulose Sodium 0.5% Ophth Soln 15 ML Bottle EYEBOTH SCH ×3 (09:29→20:36)
--- NOTE | 2019-03-23 13:53 | PN ---
DATE SEEN: 03/23/2019 SUBJECTIVE: Chino Stone is a delightful 78-year-old male, in respite care. Seemed to be rebounding. More awake, more alert, more attentive. Pain is not an issue. Little bit disoriented, but comfortable. MEDICATIONS: Reviewed and appropriate. LABORATORY STUDIES: None indicated. PHYSICAL EXAMINATION: VITAL SIGNS: 36.9, 95, 116/65, 18, and 97. GENERAL: Awake, alert, appropriate, responsive to his friends and family. CHEST: Clear in all lung alfaro. HEART: Distant heart sounds. Occasional ectopy. ABDOMEN: Rotund. ASSESSMENT: Metastatic disease. PLAN: Care plan in place, prolonged stay in a snf or home with care as appropriate. /[id number] NURA/EDWIN
[2019-03-24] MEDS: Nystatin Susp 100,000 Unit/ML 5 ML UD Cup PO SCH ×4 (08:23→20:17)
[2019-03-24] MEDS: Carboxymethylcellulose Sodium 0.5% Ophth Soln 15 ML Bottle EYEBOTH SCH ×3 (08:23→20:17)
[2019-03-24] MEDS: predniSONE 20 MG Tab PO SCH (08:24)
[2019-03-24] MEDS: LORazepam 0.5 MG Tab PO PRN (21:08)
[2019-03-24] MEDS: Acetaminophen 325 MG Tab PO PRN (21:09)
[2019-03-25] MEDS: predniSONE 20 MG Tab PO SCH (09:00)
[2019-03-25] MEDS: Carboxymethylcellulose Sodium 0.5% Ophth Soln 15 ML Bottle EYEBOTH SCH ×3 (09:00→20:13)
[2019-03-25] MEDS: Nystatin Susp 100,000 Unit/ML 5 ML UD Cup PO SCH ×4 (09:00→20:13)
[2019-03-26] MEDS: Carboxymethylcellulose Sodium 0.5% Ophth Soln 15 ML Bottle EYEBOTH SCH ×3 (09:33→20:26)
[2019-03-26] MEDS: predniSONE 20 MG Tab PO SCH (09:34)
[2019-03-26] MEDS: Nystatin Susp 100,000 Unit/ML 5 ML UD Cup PO SCH ×4 (09:34→20:26)
[2019-03-26] MEDS: LORazepam 0.5 MG Tab PO PRN (20:27)
[2019-03-26] MEDS: Acetaminophen 325 MG Tab PO PRN (20:27)
[2019-03-27] MEDS: Carboxymethylcellulose Sodium 0.5% Ophth Soln 15 ML Bottle EYEBOTH SCH ×3 (09:25→20:50)
[2019-03-27] MEDS: predniSONE 20 MG Tab PO SCH (09:25)
[2019-03-27] MEDS: Nystatin Susp 100,000 Unit/ML 5 ML UD Cup PO SCH ×4 (09:25→20:50)
--- NOTE | 2019-03-28 08:26 | PCM.PN ---
- General Info Date of Service: 03/28/19 Admission Dx/Problem (Free Text): patient states he is doing well. His appetite is coming back and he can move his arms and legs. Still not able to your weight without a lot of assistance. He denies chest pain, shortness of breath. - Patient Data Vitals - Most Recent: Last Vital Signs Temp 97.4 F 03/28/19 01:09 Pulse 84 03/28/19 01:09 Resp 14 03/28/19 01:09 BP 119/63 03/28/19 01:09 Pulse Ox 96 03/28/19 01:09 Weight - Most Recent: 190 lb 9.6 oz Med Orders - Current: Current Medications Acetaminophen (Tylenol) 650 mg RECTAL Q4H PRN PRN Reason: MILD PAIN/FEVER Last Admin: 03/20/19 22:36 Dose: 650 mg Acetaminophen (Tylenol) 650 mg PO Q4H PRN PRN Reason: MILD PAIN/FEVER Last Admin: 03/26/19 20:27 Dose: 650 mg Albuterol/Ipratropium (Duoneb 3.0-0.5 Mg/3 Ml) 3 ml INH TID PRN PRN Reason: Shortness of Breath Artificial Tears (Refresh Tears 0.5%) 0 ml EYEBOTH TID [facility] Last Admin: 03/27/19 20:50 Dose: 3 drop Guaifenesin/Codeine Phosphate (Robitussin Ac) 10 ml PO Q4H PRN PRN Reason: Cough Haloperidol (Haldol) 0.5 mg PO Q6H PRN PRN Reason: AGITATION/HALLUCINATIONS Hyoscyamine (Hyomax-Sl) 0.125 mg PO Q4H PRN PRN Reason: SECRETION MANAGEMENT Lorazepam (Ativan) 0.5 mg PO Q2H PRN PRN Reason: DYSPNEA/AGITATION Last Admin: 03/26/19 20:27 Dose: 0.5 mg Morphine Sulfate (Morphine 10 Mg/0.5 Ml Oral Syringe) 5 mg PO Q30M PRN PRN Reason: MODERATE-SEVERE PAIN/DYSPNEA Nystatin (Mycostatin) 5 ml PO QID [facility] Last Admin: 03/27/19 20:50 Dose: 5 ml Prednisone (Prednisone) 20 mg PO DAILY [facility] Last Admin: 03/27/19 09:25 Dose: 20 mg Senna/Docusate Sodium (Senna Plus) 1 tab PO BID PRN PRN Reason: Constipation Sodium Chloride (Saline Flush) 10 ml FLUSH ASDIRECTED PRN PRN Reason: Keep Vein Open Tramadol HCl (Ultram) 50 mg PO QID PRN PRN Reason: SEVERE PAIN Discontinued Medications Lorazepam (Ativan) 0.5 mg PO QID PRN PRN Reason: ANXIETY/AGITATION/NAUSEA Lorazepam (Ativan) 0.5 mg IVPUSH Q4H PRN PRN Reason: Agitation Last Admin: 03/20/19 22:36 Dose: 0.5 mg Morphine Sulfate (Morphine 20 Mg/Ml Soln) 5 mg PO Q4H PRN PRN Reason: MODERATE-SEVERE PAIN Morphine Sulfate (Morphine 10 Mg/0.5 Ml Oral Syringe) 5 mg PO Q4H PRN PRN Reason: MODERATE-SEVERE PAIN Last Admin: 03/21/19 10:40 Dose: 5 mg Non-Formulary Medication (Dextran/Hypromellose/Glycerin [Tears Naturale Forte]) 2 drop OP DAILY PRN PRN Reason: Dry Eyes Nystatin (Mycostatin) 5 ml PO QID [facility] Last Admin: 03/20/19 22:48 Dose: Not Given - Exam General: Alert, Oriented, Cooperative Lungs: Normal Respiratory Effort - Problem List & Annotations (1) Colon cancer SNOMED Code(s): 437737129 Code(s): C18.9 - MALIGNANT NEOPLASM OF COLON, UNSPECIFIED Status: Acute Current Visit: Yes (2) Bladder cancer SNOMED Code(s): 408243598 Code(s): C67.9 - MALIGNANT NEOPLASM OF BLADDER, UNSPECIFIED Status: Acute Current Visit: No (3) CAD (coronary artery disease) SNOMED Code(s): 28353622 Code(s): I25.10 - ATHSCL HEART DISEASE OF [place] CORONARY ARTERY W/O ANG PCTRS Status: Acute Current Visit: No (4) Chronic kidney disease SNOMED Code(s): 110191626 Code(s): N18.9 - CHRONIC KIDNEY DISEASE, UNSPECIFIED Status: Acute Current Visit: No (5) Gout SNOMED Code(s): 33086165 Code(s): M10.9 - GOUT, UNSPECIFIED Status: Acute Current Visit: No (6) Multiple myeloma SNOMED Code(s): 237780388 Code(s): C90.00 - MULTIPLE MYELOMA NOT HAVING ACHIEVED REMISSION Status: Acute Current Visit: No - Problem List Review Problem List Initiated/Reviewed/Updated: Yes - My Orders Last 24 Hours: My Active Orders 03/27/19 08:50 Consult to Occupational Therapy [OT Evaluation and Treatment] [CONS] Routine Consult to Physical Therapy [PT Evaluation and Treatment] [CONS] Routine - Plan Plan:: patient will be going to the detention. He may go home for the weekend before he is admitted. His end-stage cancer.
[2019-03-28] MEDS: Carboxymethylcellulose Sodium 0.5% Ophth Soln 15 ML Bottle EYEBOTH SCH ×3 (08:57→20:21)
[2019-03-28] MEDS: Nystatin Susp 100,000 Unit/ML 5 ML UD Cup PO SCH ×4 (08:57→20:20)
[2019-03-28] MEDS: predniSONE 20 MG Tab PO SCH (08:58)
[2019-03-28] MEDS: Acetaminophen 325 MG Tab PO PRN (12:45)
[2019-03-29] MEDS: Carboxymethylcellulose Sodium 0.5% Ophth Soln 15 ML Bottle EYEBOTH SCH (08:55)
[2019-03-29] MEDS: predniSONE 20 MG Tab PO SCH (08:56)
[2019-03-29] MEDS: Nystatin Susp 100,000 Unit/ML 5 ML UD Cup PO SCH (08:57)
--- NOTE | 2019-03-29 08:57 | PCM.DCSUM1 ---
Discharge Summary - Hospital Course Free Text/Narrative:: hospital course-patient with a hospice consult. He cannot be put on hospice in the hospital so they look for transfer to long-term. As this is going on patient's strength gained oh little bit of the lower legs and his spasms upper extremity stop. He was mentally normal. He had a family reunion in [facility] he wants to go to. And the patients , lots of help and they're going to go to [place] for this reading and then come back in 4 days and get plugged the long-term. His hospital stay was uneventful. He did not use any morphine for pain but use Tylenol on Wednesday tramadol. Brief History: this is a 78-year-old male patient with history of multiple myeloma, rectal cancer, prostate cancer metastatic. 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 He was transferred to [place] for swing bed. Diagnosis: Stroke: No - Discharge Data Discharge Date: 03/29/19 Discharge Disposition: Home, Self-Care 01 Condition: Poor - Discharge Diagnosis/Problem(s) (1) Colon cancer SNOMED Code(s): 948831519 ICD Code: C18.9 - MALIGNANT NEOPLASM OF COLON, UNSPECIFIED Status: Acute Current Visit: Yes (2) Bladder cancer SNOMED Code(s): 193976494 ICD Code: C67.9 - MALIGNANT NEOPLASM OF BLADDER, UNSPECIFIED Status: Acute Current Visit: No (3) CAD (coronary artery disease) SNOMED Code(s): 35670351 ICD Code: I25.10 - ATHSCL HEART DISEASE OF [place] CORONARY ARTERY W/O ANG PCTRS Status: Acute Current Visit: No (4) Chronic kidney disease SNOMED Code(s): 331422727 ICD Code: N18.9 - CHRONIC KIDNEY DISEASE, UNSPECIFIED Status: Acute Current Visit: No (5) Gout SNOMED Code(s): 21222343 ICD Code: M10.9 - GOUT, UNSPECIFIED Status: Acute Current Visit: No (6) Multiple myeloma SNOMED Code(s): 919028266 ICD Code: C90.00 - MULTIPLE MYELOMA NOT HAVING ACHIEVED REMISSION Status: Acute Current Visit: No - Patient Summary/Data Consults: Consultations 03/21/19 08:31 Consult to Hospice [CONS] Routine Comment: Physician Instructions: 03/27/19 08:50 Consult to Occupational Therapy [OT Evaluation and Treatment] [CONS] Routine Please Evaluate and Treat. OT Reason for Consult: ADL's This query below is only for informational purposes and is not editable. Admission Diagnosis/Problem: Palliative care Consult to Physical Therapy [PT Evaluation and Treatment] [CONS] Routine Please Evaluate and Treat. PT Reason for Consult: Ambulation This query below is only for informational purposes and is not editable. Admission Diagnosis/Problem: Palliative care - Patient Instructions Diet: Regular Diet as Tolerated Activity: As Tolerated Driving: Do Not Drive Showering/Bathing: May Shower Other/Special Instructions: 1. Admit to [facility] on Wednesdayap[facility] 03. - Discharge Plan Prescriptions/Med Rec: predniSONE [Prednisone] 20 mg PO DAILY #30 tablet Home Medications: Home Meds Sennosides/Docusate Sodium [Senna-Docusate Sodium] 1 tab PO BID PRN 09/23/15 [ History] Acetaminophen 650 mg PO Q6H PRN 03/09/19 [History] LORazepam [Ativan] 0.5 mg PO QID PRN 03/09/19 [History] guaiFENesin/Codeine Phosphate [Codeine-Guaifen 10-100 mg/5 ml] 10 ml PO Q4H PRN 03/09/19 [History] traMADol [Ultram] 50 mg PO QID PRN 03/09/19 [History] Chlorhex Gl/Glycerin/He-Cell [K-Y Personal Lubricant Jelly] 1 applic TOP ASDIRECTED PRN 03/20/19 [History] Dextran/Hypromellose/Glycerin [Tears Naturale Forte] 2 drop OP DAILY PRN [History] Nystatin 5 ml PO QID 03/20/19 [History] Carboxymethylcellulose Sodium [Refresh Tears 0.5%] 0 ml EYEBOTH TID bottle 10/05 [Rx] predniSONE [Prednisone] 20 mg PO DAILY #30 tablet 03/29/19 [Rx] - Discharge Summary/Plan Comment DC Time >30 min.: No - Patient Data Vitals - Most Recent: Last Vital Signs Temp 97.4 F 03/28/19 01:09 Pulse 84 03/28/19 01:09 Resp 14 03/28/19 01:09 BP 119/63 03/28/19 01:09 Pulse Ox 96 03/28/19 08:28 Weight - Most Recent: 190 lb 9.6 oz Med Orders - Current: Current Medications Acetaminophen (Tylenol) 650 mg RECTAL Q4H PRN PRN Reason: MILD PAIN/FEVER Last Admin: 03/20/19 22:36 Dose: 650 mg Acetaminophen (Tylenol) 650 mg PO Q4H PRN PRN Reason: MILD PAIN/FEVER Last Admin: 03/28/19 12:45 Dose: 650 mg Albuterol/Ipratropium (Duoneb 3.0-0.5 Mg/3 Ml) 3 ml INH TID PRN PRN Reason: Shortness of Breath Artificial Tears (Refresh Tears 0.5%) 0 ml EYEBOTH TID [facility] Last Admin: 03/28/19 20:21 Dose: 3 drop Guaifenesin/Codeine Phosphate (Robitussin Ac) 10 ml PO Q4H PRN PRN Reason: Cough Haloperidol (Haldol) 0.5 mg PO Q6H PRN PRN Reason: AGITATION/HALLUCINATIONS Hyoscyamine (Hyomax-Sl) 0.125 mg PO Q4H PRN PRN Reason: SECRETION MANAGEMENT Lorazepam (Ativan) 0.5 mg PO Q2H PRN PRN Reason: DYSPNEA/AGITATION Last Admin: 03/26/19 20:27 Dose: 0.5 mg Morphine Sulfate (Morphine 10 Mg/0.5 Ml Oral Syringe) 5 mg PO Q30M PRN PRN Reason: MODERATE-SEVERE PAIN/DYSPNEA Nystatin (Mycostatin) 5 ml PO QID [facility] Last Admin: 03/28/19 20:20 Dose: 5 ml Prednisone (Prednisone) 20 mg PO DAILY [facility] Last Admin: 03/28/19 08:58 Dose: 20 mg Senna/Docusate Sodium (Senna Plus) 1 tab PO BID PRN PRN Reason: Constipation Sodium Chloride (Saline Flush) 10 ml FLUSH ASDIRECTED PRN PRN Reason: Keep Vein Open Tramadol HCl (Ultram) 50 mg PO QID PRN PRN Reason: SEVERE PAIN Discontinued Medications Lorazepam (Ativan) 0.5 mg PO QID PRN PRN Reason: ANXIETY/AGITATION/NAUSEA Lorazepam (Ativan) 0.5 mg IVPUSH Q4H PRN PRN Reason: Agitation Last Admin: 03/20/19 22:36 Dose: 0.5 mg Morphine Sulfate (Morphine 20 Mg/Ml Soln) 5 mg PO Q4H PRN PRN Reason: MODERATE-SEVERE PAIN Morphine Sulfate (Morphine 10 Mg/0.5 Ml Oral Syringe) 5 mg PO Q4H PRN PRN Reason: MODERATE-SEVERE PAIN Last Admin: 03/21/19 10:40 Dose: 5 mg Non-Formulary Medication (Dextran/Hypromellose/Glycerin [Tears Naturale Forte]) 2 drop OP DAILY PRN PRN Reason: Dry Eyes Nystatin (Mycostatin) 5 ml PO QID [facility] Last Admin: 03/20/19 22:48 Dose: Not Given
[2019-03-29 09:15] VITALS: BP 111/73
== END 2019-03-29 11:20 | disposition home or self-care (01) | DRG 948 ==
LOC: FB.MS 12:12
PROVIDERS: ADMIT Family Medicine; ATTEND Family Medicine
DX: R53.81 Other malaise (principal); C79.9 Secondary malignant neoplasm of unspecified site; C90.00 Multiple myeloma not having achieved remission; C78.7 Secondary malignant neoplasm of liver and intrahepatic bile duct; C78.5 Secondary malignant neoplasm of large intestine and rectum; C79.51 Secondary malignant neoplasm of bone; Z51.5 Encounter for palliative care; Z66 Do not resuscitate; C61 Malignant neoplasm of prostate; C67.9 Malignant neoplasm of bladder, unspecified; M10.9 Gout, unspecified; N18.9 Chronic kidney disease, unspecified; I25.10 Atherosclerotic heart disease of native coronary artery without angina pectoris; Z88.8 Allergy status to other drugs, medicaments and biological substances
CPT/HCPCS: 97161-GP; 97165-GO; 97530-GO; 97530-GP; A9270-GY; J2060